=== PATIENT | female | born 1985 | race American Indian/Alaskan Native ===

== ENCOUNTER 2017-09-05 06:52 | Emergency (ER) | payer MEDICAID ==
[2017-09-05] MEDS ORDERED: Phenaphthazine-PH Test Paper VI ONE (07:50)
[2017-09-05 08:20] VITALS: BMI 37.8
--- NOTE | 2017-09-05 09:18 | OBHP ---
Datetime: 09/05/2017 07:55 IP Adm Impression: Term, intrauterine IP Admit Plan: Discharge home Admit Comment, IP Provider: 22 y/o F at 39.6 weeks GA, LMP 12/04/16, with PEGGY 09/06/17 confirmed with first trim US, c/o suspected ROM at 6 AM this morning. Pt explains seeing a glush of clear odor less fluid coming from vagina. No vaginal bleeding or CTX. FM present. Last intercourse 2 days ago. P t denies fever, headache, visual disturbances, CP, SOB or rash. OBHx: . 1x at 41 weeks GA in 2005. Induced 1x. No complication during this p regnancy or previous one. No complication with vaginal delivery last time. P[facility] Clinic: [facility] Medications: PNV. PMHx: denied. PSHx: tonsillectomy at 9 y/o. SHx: Pt smoked 3 cigarettes a day. No alcohol or rec drugs. A/P: 31 y/o F with IUP at 39.6 weeks GA with suspected ROM. - Labor precautions discussed with pt. - D/C home. Case discussed with Dr Yoder, OB promotional representative Talia PGY-1 Pelvic Type - PN: Adequate Extremities - PN: Normal Back - PN: Normal Lungs - PN: Normal Heart - PN: Normal Neurologic - PN: Normal HEENT - PN: Normal General - PN: Normal FHR - Baseline A Provider: 140 Membranes, Provider: Intact Contraction Comments Provider: none Comments, ACOG Physical Exam: Pelvic: - Speculum: No pooling, nitrazine negative. - Cervix closed and high. Bedside US showed adequate amount of amniotic fluid. Gestation - Est Wks by US: 39.6 Pool Provider: Negative Nitrazine Provider: Negative IP Hx Assessment: The History has been Reviewed and is Current EGA AdmitDate IP: 39.6 IP Chief Complaint: Suspected ruptured membranes NICHD Variability Prov Fetus A: Moderate 6-25bpm FHR Category Provider Fetus A: Category I Dilatation, Provider: 0 Effacement, Provider: 0 Station, Provider: -3
[2017-09-05 13:22] VITALS: BP 113/84; PULSE 101; RESP 12; TEMP 98
== END 2017-09-05 09:15 | disposition home or self-care (01) ==
LOC: H.EROB2 06:52 → H.EROB 07:30 → H.EROB2 09:15
DX: O47.1 False labor at or after 37 completed weeks of gestation (principal); Z3A.39 39 weeks gestation of pregnancy; O34.63 Maternal care for abnormality of vagina, third trimester; N89.8 Other specified noninflammatory disorders of vagina